=== PATIENT | female | born 1955 | race Caucasian/White ===

== ENCOUNTER → 2017-11-14 | Outpatient (CLI) | payer OTHER ==
[~2017-11-14] MED LIST: ALDACTONE50 MG PO; ALLEGRA-D 12 H1 EAC1 PO; ASPIRIN325 PO; CARDIO OMEGA B1 EACH PO; CLARITIN10 MG PO; COLACE100 MG PO; COZAAR 25 MG TA25 M1 PO; FLEXI JOINT TA1 EAC1 PO; PANTOPRAZOLE SO40 M1 PO; PERCOCET PO; PROTONIX40 M1 PO; TUMS PO; UNICOMPLEX M TA1 TA1 PO; VENLAFAXIN75 MG/1 T2 PO; XARELTO10 MG PO
[2017-11-14 15:17] LABS: HEMATOCRIT 40.7 % (37.0-47.0); HEMOGLOBIN 13.5 gm/dL (12.0-15.0); MCH 30.6 pg (26.0-34.0); MCHC 33.2 g/dL (28.0-37.0); MPV 8.5 fl. (7.2-11.1); RBC 4.43 mil/uL (4.20-5.00); RDW-CV 13.6 % (10.5-14.5); WBC 6.3 thou/uL (4.0-11.0)
[2017-11-14 15:34] LABS: ALBUMIN 3.9 g/dL (3.4-5.0); CALCIUM 8.7 mg/dL (8.5-10.1); CREATININE 0.9 mg/dL (0.6-1.3); POTASSIUM 3.9 mmol/L (3.5-5.1); TOTAL BILIRUBIN 0.5 mg/dL (<0.1-1.0); TOTAL PROTEIN 7.3 g/dL (6.4-8.2)
== END ==
LOC: M.LAB 14:51
PROVIDERS: Anesthesiology
DX: Z01.812 Encounter for preprocedural laboratory examination (principal); R94.31 Abnormal electrocardiogram [ECG] [EKG]

== ENCOUNTER → 2018-11-24 | Outpatient (CLI) | payer OTHER | LOC: M.RAD 09:20 | DX: Z12.31 Encounter for screening mammogram for malignant neoplasm of breast (principal) ==

== ENCOUNTER → 2018-11-27 | Outpatient (CLI) | payer OTHER | LOC: M.ULTRA 10:00 | DX: N60.01 Solitary cyst of right breast (principal); N63.23 Unspecified lump in the left breast, lower outer quadrant ==

== ENCOUNTER → 2020-02-04 | Outpatient (CLI) | payer OTHER | LOC: M.RAD 14:00 | PROVIDERS: ATTEND Family Medicine | DX: Z12.31 Encounter for screening mammogram for malignant neoplasm of breast (principal) ==

== ENCOUNTER → 2021-06-12 | Outpatient (CLI) | payer MEDICARE, OTHER | LOC: M.CT 13:50 | PROVIDERS: ATTEND Family Medicine | DX: J34.89 Other specified disorders of nose and nasal sinuses (principal); J32.2 Chronic ethmoidal sinusitis; J34.2 Deviated nasal septum ==

== ENCOUNTER → 2021-07-25 | Outpatient (CLI) | payer MEDICARE, OTHER | LOC: M.LAB 13:32 | PROVIDERS: ATTEND Internal Medicine Gastroenterology | DX: Z01.812 Encounter for preprocedural laboratory examination (principal); E87.6 Hypokalemia; Z20.822 Contact with and (suspected) exposure to COVID-19 ==